=== PATIENT | female | born 1980 | race Hispanic/Latino ===

== ENCOUNTER 2019-07-25 19:23 | Emergency (ER) | payer BC, OTHER ==
[2019-07-25] MEDS ORDERED: ACETAMINOPHEN-CODEINE 300/30MG TAB ONE ×2 (19:51→20:01)
== END 2019-07-25 21:08 | disposition home or self-care (01) ==
LOC: EDH 19:23
DX: R21 Rash and other nonspecific skin eruption (principal)

== ENCOUNTER → 2023-11-29 | Outpatient (CLI) | payer BC | END | disposition home or self-care (01) | LOC: RAH 07:55 | PROVIDERS: ATTEND Internal Medicine | DX: R74.8 Abnormal levels of other serum enzymes (principal) | CPT/HCPCS: 76700 ==